=== PATIENT | male | born 1995 | race Caucasian/White ===

== ENCOUNTER → 2021-02-10 10:53 | Outpatient (CLI) | payer OTHER, SELFPAY ==
--- NOTE | 2021-02-10 16:20 | STRESSREP ---
Stress Test Report Exercise stress test. 25-year-old male with a history of chest pain. Stress protocol: Resting EKG demonstrates normal sinus rhythm with a rate of 75 bpm normal intervals are noted resting blood pressure is 140/82 mmHg. The patient exercised according to regular Christian protocol for total duration of 12 minutes patient completed stage IV of the Christian protocol the maximum heart rate attained was 164 bpm which was 84% of max impact at heart rate the maximum workload was 13.4 metabolic equivalents. At rest there were no ST or T wave changes noted to suggest ischemia and at peak exercise upsloping ST changes were noted with did not meet the criteria for ischemia. No clinical angina was noted. The test was terminated due to target heart rate being achieved. The peak blood pressure was 182/58 mmHg. No arrhythmias were noted. Conclusion: Exercise stress test with no EKG criteria for ischemia at a high workload. No clinical angina noted. Excellent functional capacity.
== END ==
LOC: CVS 10:58
PROVIDERS: PCP Nurse Practitioner Primary Care; Referring Provider Surgery; Visit Provider Surgery
DX: R07.89 Other chest pain (principal)
CPT/HCPCS: 93017